=== PATIENT | male | born 1955 | race Caucasian/White ===

== ENCOUNTER 2022-12-19 15:23 | Observation (INO) | payer MEDICARE, SELFPAY ==
[2022-12-19] VITALS (19 sets, daily range): BP systolic 124–153; BP diastolic 70–98; PULSE 54–81; RESP 11–20; TEMP 35.9–36.9; O2SAT 95–99; BMI 28.9
--- NOTE | ~2022-12-19 | CT_ITS ---
EXAMINATION: CTA BRAIN/CAROTID DATE: 12/19/2022 16:45 INDICATION: Transient global amnesia TECHNIQUE: Computed tomographic angiography (CTA) of the head and neck was performed with 100 mL Omni paque-350 intravenous contrast. Multiplanar reconstructions and maximum intensity projection 3D-recon structions of the carotid arteries and of the intracranial arteries were created by the technologist on a separate workstation. Precontrast CT of the head was also obtained. Automated exposure control and iterative reconstruction technique were employed.The dose-length product was 1929.99 mGy-cm. COMPARISON: None. FINDINGS: Carotid arteries: Thoracic aorta and great vessels arising from the arch are normal in caliber with small amounts of at herosclerotic plaque without hemodynamically significant stenosis and no dissection. There is small a mount of atherosclerotic plaque with 0% stenosis of the right carotid bulb relative to normal distal artery lumen diameter (NASCET criteria). There is no evident atherosclerotic plaque with 0% stenosis of the left carotid bulb relative to normal distal artery lumen diameter. Multinodular goiter, the la rgest a 1.6 cm hypoenhancing right thyroid nodule. Cervical soft tissues are otherwise unremarkable. Visual is portions of the mid to upper lungs are clear. Moderate cervical spondylosis. Head: No acute intracranial hemorrhage, acute infarction or abnormal extra axial fluid collection. Ventricl es are normal and symmetric. No mass/mass effect.. No abnormally enhancing brain lesions. Changes of bilateral intraocular lens replacement. The orbits and mastoid air cells are normal. Mild mucosal thi ckening the left maxillary sinus. Intracranial arteries Small amount of atherosclerotic plaque without hemodynamically significant stenosis at the bilateral carotid siphons. There is no hemodynamically significant stenosis in the vertebral, basilar and inter nal carotid arteries. Vertebral arteries are codominant. There are no aneurysms identified. Both A1 and P1 segments are patent. There is also a patent anterior communicating artery. Cerebral arterial a rborization appears symmetric. IMPRESSION: 1. 0% stenosis of the right carotid bulb relative to normal distal artery lumen diameter (NASCET crit eria). 2. 0% stenosis of the left carotid bulb relative to normal distal artery lumen diameter. 3. Normal aging brain with no acute intracranial process or abnormally enhancing brain lesions. 4. Unremarkable cerebral CT angiogram with no significant stenosis or aneurysm. Reviewed, dictated and finalized at location A. IMPRESSION: 1. 0% stenosis of the right carotid bulb relative to normal distal artery lumen diameter (NASCET criteria). 2. 0% stenosis of the left carotid bulb relative to normal distal artery lumen diameter. 3. Normal aging brain with no acute intracranial process or abnormally enhancin g brain lesions. 4. Unremarkable cerebral CT angiogram with no significant stenosis or aneurysm.
--- NOTE | ~2022-12-19 | MR_ITS ---
EXAMINATION: MR brain/brain stem wo/w con DATE: 12/20/2022 14:42 INDICATION: Transient ischemic episode. Global transient amnesia TECHNIQUE: Magnetic resonance imaging (MRI) of the brain and brainstem was performed without and with 18 mL Multihance intravenous contrast. Sequences included sagittal and axial T1-weighted SE, axial d iffusion-weighted FS SE, axial 3D SWAN, axial T2-weighted FLAIR, and axial T2-weighted FSE. Postcontr ast axial and coronal T1-weighted SE was obtained. Apparent diffusion coefficient (ADC) maps were cre ated. COMPARISON: None. FINDINGS: There are no areas of restricted diffusion to suggest acute infarction. No intracranial hemorrhage or abnormal intracranial mass lesion. There are no intraparenchymal signal abnormalities seen on the ot her pulse sequences. The ventricles are symmetric and normal in size. There are no abnormal extra-axi al fluid collections. There are no areas of abnormal enhancement on the post contrast images. Flow vo ids are seen in the cerebral arteries on the T2-weighted sequences consistent with their expected pat ency. Changes of bilateral intraocular lens replacement. Visualized orbits and soft tissues are unrem arkable. IMPRESSION: 1. Normal brain. No acute intracranial process or abnormally enhancing brain lesions. Reviewed, dictated and finalized at location A. IMPRESSION: 1. Normal brain. No acute intracranial process or abnormally enhancing brain le sions.
--- NOTE | ~2022-12-19 | XR_ITS ---
EXAMINATION: XR chest 2V 12/19/2022 16:47 INDICATION: Altered mental status PROCEDURE: 2 view chest COMPARISON: No prior studies for comparison. FINDINGS: The lungs are clear. The cardiomediastinal silhouette is within normal limits. There are no pleural effusions. There is no pneumothorax suspected. IMPRESSION: 1: NO ACUTE CARDIOPULMONARY DISEASE. Reviewed, dictated and finalized at location B.
--- NOTE | 2022-12-19 15:38 | ECG_ITS ---
Measurements Intervals [place] Rate: 76 P: 33 HI: 197 QRS: -2 QRSD: 100 T: 9 QT: 380 QTc: 428 Interpretive Statements SINUS RHYTHM DELAYED PRECORDIAL R/S TRANSITION LOW QRS VOLTAGE IN PRECORDIAL LEADS BORDERLINE ECG NO PREVIOUS ECG AVAILABLE FOR COMPARISON Electronically Signed On 12-20-2022 12:08:41 CDT by Torey Nice D.O.
[2022-12-19 16:17] LABS: Basophils Percent Auto 0.4 % (0.2-1.2); Eosinophils Absolute Auto 0.1 K/mm3 (0-0.3); Eosinophils Percent Auto 1.8 % (0-4.4); Hematocrit 41.2 % (42.0-52.0); Hemoglobin 13.7 g/dL (14.0-18.0); Immature Granulocyte Absolute 0.01 K/mm3 (0.00-0.031); Immature Granulocyte Percent A 0.2 % (0-0.5); Lymphocytes Absolute Auto 0.95 K/mm3 (0.9-3.2); Lymphocytes Percent Auto 19.2 % (18.3-44.2); Mean Corpuscular HGB Conc 33.3 g/dl (32-36); Mean Corpuscular Hemoglobin 28.6 pg (26-34); Mean Platelet Volume 9.5 fl (7.4-10.4); Monocytes Absolute Auto 0.3 K/mm3 (0.1-0.6); Monocytes Percent Auto 6.7 % (2.6-8.5); Neutrophils Absolute Auto 3.6 K/mm3 (1.3-6.7); Neutrophils Percent Auto 71.7 % (45.5-73.1); Platelet Count Result 141 k/mm3 (150-375); Red Blood Count 4.79 M/mm3 (4.6-6.20); Red Cell Distribution Width 12.9 % (11.5-14.5)
[2022-12-19 16:25] LABS: Prothrombin Time 13.2 Seconds (11.1-14.7)
[2022-12-19 16:26] LABS: Partial Thromboplastin Time 28.9 SECONDS (22.3-36.8)
[2022-12-19 16:29] LABS: Alanine Aminotransferase 23 U/L (6-50); Albumin Level 4.3 g/dL (3.5-5.1); Alkaline Phosphatase 73 U/L (38-126); Anion Gap 8 mmol/L (8-16); Aspartate Amino Transferase 29 U/L (17-59); Bilirubin,Total 0.9 mg/dL (0.2-1.3); Blood Urea Nitrogen 19 mg/dL (9-20); Calcium 8.7 mg/dL (8.4-10.2); Carbon Dioxide 24 mmol/L (22-30); Chloride 105 mmol/L (98-107); Estimated CRCL calculation 57 ml/min; Estimated Glomerular Filt Rate > 60; Glucose 84 mg/dL (65-110); Potassium 3.7 mmol/L (3.4-5.0); Sodium 137 mmol/L (137-145)
[2022-12-19 16:41] LABS: Troponin I < 0.012 ng/mL (0.000-0.034)
--- NOTE | 2022-12-19 16:56 | ED.AMS ---
HPI - Altered Mental Status General Chief Complaint: Altered Mental Status Stated Complaint: AMS Time Seen by Provider: 12/19/22 15:35 History of Present Illness HPI narrative: Patient is a 67-year-old male who presents ER with sudden onset confusion. Occurred at 2 PM. Patient had been at his niece's house performing plumbing. He had been acting normal during the day and then this began. Patient has history of TIA in the past. Family reports he is otherwise healthy outside of elevated cholesterol. He had been on Plavix up until a few years ago when it was discontinued. Patient is alert and oriented to self and is aware he is at hospital but is unsure why. Related Data Home Medications Medication Instructions Recorded Confirmed aspirin 81 mg tablet 81 mg PO 12/19/22 atorvastatin 40 mg tablet 40 mg PO DAILY 12/19/22 Allergies Allergy/AdvReac Type Severity Reaction Status Date / Time erythromycin base Allergy Hives Verified 12/19/22 16:02 Review of Systems Review of Systems: ROS unobtainable: Yes unobtainable due to mental status PMFSH Past Medical History Medical History (Updated 12/19/22 @ 18:01 by Lauro Jane MD) Hyperlipidemia TIA (transient ischemic attack) Surgical History Surgical History (Updated 12/19/22 @ 17:56 by Lauro Jane MD) History of appendectomy Social History Social History (Updated 12/19/22 @ 17:56 by Lauro Jane MD) Social History: History of tobacco use but currently uses a vape pen Exam Narrative: GENERAL: Well-appearing, well-nourished, and in no acute distress. HEAD: Normocephalic, atraumatic. EYES: PERRL and EOMI. ENT: Mucous membranes moist. NECK: Supple. No carotid bruit CHEST: Clear to auscultation. No respiratory distress. HEART: Regular rate and rhythm. Normal peripheral pulses. ABDOMEN: Soft, nontender, nondistended. EXTREMITIES: Normal range of motion. No edema. SKIN: Warm, dry, no rash. NEURO: No upper or lower extremity drift. Clear speech. No facial asymmetry. Normal finger-nose testing and [id number] testing. Alert and oriented x2. Gross sensation intact.. Course Course Emergency Course: Patient resting comfortably. No change in status. Neurology consulted and recommends Plavix. Patient will be admitted for observation and hospitalist has accepted the patient. Patient's symptoms are noncompatible for tPA administration. Vital Signs Vital signs: Vital Signs Temperature 98.4 F 12/19/22 15:35 Pulse Rate 74 12/19/22 15:35 Respiratory Rate 17 12/19/22 15:35 Pulse Oximetry 95 12/19/22 15:35 Oxygen Delivery Room Air 12/19/22 15:35 Temperature 98.4 F 12/19/22 15:35 Pulse Rate 70 12/19/22 16:01 Respiratory Rate 11 L 12/19/22 16:01 Blood Pressure 140/98 H 12/19/22 16:01 Pulse Oximetry 96 12/19/22 16:01 Oxygen Delivery Room Air 12/19/22 15:35 MDM - Altered Mental Status Lab Data 12/19/22 16:10 12/19/22 16:10 Labs: Lab Results 12/19/22 Range/Units 16:10 WBC 5.0 (4.5-10.0) K/mm3 RBC 4.79 (4.6-6.20) M/mm3 Hgb 13.7 L (14.0-18.0) g/dL Hct 41.2 L (42.0-52.0) % MCV 86.0 (80-100) fl MCH 28.6 (26-34) pg MCHC 33.3 (32-36) g/dl RDW 12.9 (11.5-14.5) % Plt Count 141 L (150-375) k/mm3 MPV 9.5 (7.4-10.4) fl Immature Gran % (Auto) 0.2 (0-0.5) % Neut % (Auto) 71.7 (45.5-73.1) % Lymph % (Auto) 19.2 (18.3-44.2) % [place] % (Auto) 6.7 (2.6-8.5) % Eos % (Auto) 1.8 (0-4.4) % Baso % (Auto) 0.4 (0.2-1.2) % Lymph # (Auto) 0.95 (0.9-3.2) K/mm3 [place] # (Auto) 0.3 (0.1-0.6) K/mm3 Eos # (Auto) 0.1 (0-0.3) K/mm3 Baso # (Auto) 0.0 (0.0-0.1) K/mm3 Abs Immat Gran (auto) 0.01 (0.00-0.031) K/mm3 Absolute Neuts (auto) 3.6 (1.3-6.7) K/mm3 Absolute Nucleated RBC 0.0 (0.0-0.012) K/mm3 Nucleated RBC % 0.0 (0.0-0.2) % PT 13.2 (11.1-14.7) Seconds INR 1.0 APTT 28.9 (22.3-36.8) SECONDS Sodium
[2022-12-19 17:00] LABS: Ethanol < 10 mg/dL (<10)
[2022-12-19] MEDS: CLOPIDOGREL BISULFATE 75 MG TABLET PO (18:12)
[2022-12-19 18:29] LABS: Appearance Urine Clear (Clear); Bilirubin Urine Negative (Negative); Blood Urine Negative (Negative); Color Urine Yellow (Yellow); Glucose Urine UA Negative (Negative); Ketones Urine Negative (Negative); Leukocyte Esterase Ur Negative LEU/UL (Negative); Nitrate Urine Negative (Negative); Protein Urine Negative (Negative); Urobilinogen Urine 0.2 mg/dL (<2.0)
--- NOTE | 2022-12-19 18:36 | PM.IMHP ---
H&P: HPI History of Present Illness Date/Time: 12/19/22 20:00 Chief Complaint: Altered mental status. Narrative: This is a 67-year-old male with history of TIA and hyperlipidemia who presented to the emergency department via EMS for evaluation of altered mental status. He does not really recall the events that happened today and as such a majority of the following history is obtained from his in niece who were at bedside, with the patient's permission. He spent the morning with his [id number], helping fix a plumbing problem at his niece's home. They finished working at around 14:00 and not long thereafter well he was getting ready to leave, he appears disoriented. For instance he had difficulties discerning which stools were his and he wondered where he was and what he was doing there. EMS was summoned and he was brought in for concerns of stroke. He did not have any neurologic deficits on arrival and there were no reports of slurred speech, facial droop, or focal weakness. He has been repetitive since arrival, continuously asking where he is and why he was brought here. With further questioning he does not remember golfing on Saturday, running errands with his yesterday, or going to bed last night. He does not recall getting up this morning, going to [employer] twice, or fixing a plumbing problem at his niece's home. He has not had any recent illnesses or sick contacts. No new medications or recent travel. He has not had any falls or trauma. No recent strenuous activity or stressors. In the ED: Blood pressure was 140/98 on arrival. The rest of his vital signs were normal. Platelet count was a little low at 141 but the remainder of his labs were unremarkable. Urine drug screen was negative and ethyl alcohol level was undetectable. CT of the head and neck is showed normal brain that acute process and 0% stenosis of the carotid bulbs. He is being admitted in this setting for close monitoring and further evaluation with a working diagnosis of transient global amnesia. Review of Systems Review of Systems: Twelve systems were reviewed and are negative except for as per HPI. [facility] Past Medical History Medical History (Updated 12/19/22 @ 22:24 by Ree Pabon PA-C) Hyperlipidemia Transient ischemic attack Surgical History Surgical History History of appendectomy History of esophageal dilatation Family History Family History Mother Hyperlipidemia Hypertension Breast cancer Father Hyperlipidemia Hypertension Social History Social History (Updated 12/19/22 @ 22:20 by Ree Pabon PA-C) Social History: Surrogate medical decision maker: Jennifer Moon, spouse. Code status: Full code. Smoking packs per day: 2 Smoking cigarettes per day: 40.0 Years smoked: 44 Smoking pack-years: 88.00 Smoking status: Former smoker Tobacco type: e-cigarettes/vaping Additional smoking assessment comments: Quit smoking 9 years ago, now vapes. Alcohol intake: current Drinks per week: 2 Substance use: never Substance use type: does not use Lack of Transportation: No Lack of Food: Never True Current Housing: I Have Housing Concerned About Future Housing: No Difficulty Paying Gas/Electric Bills: No Difficulty Paying for Meds: No Currently Unemployed: No Education: Decline to Answer Difficulty w/ Childcare or Family Care: No Additional living arrangements comments: . Lives with spouse in [place]. Golfs 3 to 4 times a week. Additional occupation/education comments: Retired from [employer]. Spiritual care concerns: No Meds Home Medications and Allergies Home Medications Medication Instructions Recorded Confirmed Type aspirin 81 mg tablet 81 mg PO HS 12/19/22 12/19/22 History atorvastatin 40 mg tablet 40 mg PO DAILY 12/19/22 12/19/22 History
[2022-12-19 18:42] LABS: Add Urine Microscopic? NO; Amphetamine Screen Urine Negative (Negative); Barbiturate Screen Urine Negative (Negative); Benzodiazepines Screen Urine Negative (Negative); Cannabinoid Screen Urine Negative (Negative); Cocaine Screen Urine Negative (Negative); Methadone Screen Urine Negative (Negative); Opiate Screen Urine Negative (Negative); Phencyclidine Screen Urine Negative (Negative); Specific Grav Ur 1.061 (1.001-1.035)
--- NOTE | 2022-12-19 18:44 | ADMGEN ---
This patient, Aaron Moon, was admitted to [facility] Surg Room 304-01. Patient/family oriented to hospital policies and general routines including ID bracelet, bed and alarms, visiting hours, pain management, procedures, bathroom and other care routines, personal items, smoking policy, room service/diet, and visiting hours. Information on how to activate the Rapid Response Team has been discussed. Patient/Family are encouraged to report perceived risks to care and to ask questions if they do not understand what they are told or what they should do.
[2022-12-20] VITALS (10 sets, daily range): BP systolic 121–127; BP diastolic 73–82; PULSE 55–78; RESP 12–18; TEMP 36.7–36.8; O2SAT 93–97
[2022-12-20 06:12] LABS: Hematocrit 40.2 % (42.0-52.0); Hemoglobin 13.4 g/dL (14.0-18.0); Immature Platelet Fraction Pct 3.2 % (0.9-11.2); Mean Corpuscular HGB Conc 33.3 g/dl (32-36); Mean Corpuscular Hemoglobin 28.8 pg (26-34); Mean Corpuscular Volume 86.3 fl (80-100); Mean Platelet Volume 9.4 fl (7.4-10.4); Platelet Count Result 152 k/mm3 (150-375); Red Blood Count 4.66 M/mm3 (4.6-6.20); Red Cell Distribution Width 13.1 % (11.5-14.5); White Blood Count 4.4 K/mm3 (4.5-10.0)
[2022-12-20 06:21] LABS: Anion Gap 7 mmol/L (8-16); Blood Urea Nitrogen 17 mg/dL (9-20); Calcium 8.5 mg/dL (8.4-10.2); Carbon Dioxide 25 mmol/L (22-30); Chloride 103 mmol/L (98-107); Estimated CRCL calculation 62 ml/min; Estimated Glomerular Filt Rate > 60; Glucose 91 mg/dL (65-110); Magnesium 2.2 mg/dL (1.6-2.3); Potassium 3.8 mmol/L (3.4-5.0); Sodium 135 mmol/L (137-145)
[2022-12-20] MEDS: ATORVASTATIN 40 MG TABLET PO (08:49)
[2022-12-20] MEDS: CLOPIDOGREL BISULFATE 75 MG TABLET PO (08:49)
--- NOTE | 2022-12-20 09:59 | WPDNEURCNPN ---
Assessment and Plan Assessment and plan (1) Amnesia, global, transient: Code(s): G45.4 - Transient global amnesia Status: Acute (2) Transient global amnesia: Code(s): G45.4 - Transient global amnesia Status: Acute (3) Hyperlipidemia: Code(s): E78.5 - Hyperlipidemia, unspecified Status: Acute (4) Elevated blood pressure reading: Code(s): R03.0 - Elevated blood-pressure reading, without diagnosis of hypertension Status: Acute Plan Aaron Moon is a 67 year old male with a history of hyperlipidemia and prior TIAs presenting for evaluation of confusion and acute memory impairment. Concern for possible TIA vs transient global amnesia. - MRI brain - Continue aspirin and Lipitor 40mg daily - Reasonable to continue Plavix for 3 weeks if we are call this episode a TIA, but there is no evidence for continuation of terminal gauger DAPT past that Consult date: 12/20/22 Reason for consult: Amnesia, altered mental status HPI: Aaron Moon is a 67 year old male with a history of hyperlipidemia and prior TIAs presenting for evaluation of confusion and acute memory impairment. On day of presentation, patient was helping fix plumbing issues at his niece's home. Once he finished and was getting to leave, he became disoriented. He was having difficulty figuring out which tools were his and where he was and why he was there. EMS was called. Patient did not have any other focal neurological deficits at the time of their evaluation. When he was brought in to [facility] he kept asking where he was and why he was brought there. Per chart review, he also had some difficulty remembering events over the past few days such as golfing, helping his niece with plumbing. In the ED his blood pressure was in the 140s systolic. EKG was normal. CT head and CTA brain/carotid was normal as well. UDS was negative. His NIH score was [address] Silvestre was consulted in the ER and recommended admission and starting patient on Plavix. He already takes aspirin and Lipitor 40mg daily. He used to previously be on Plavix years ago, but it was discontinued. The whole episode of confusion lasted about 6-7 hours. He still has no recollection of riding in the ambulance or being brought to the hospital. He reports feeling back to baseline this morning. Review of Systems Constitutional: Constitutional: Denies chills, Denies fever(s) and Denies weight loss Eyes: Eyes: Denies diplopia and Denies loss of vision ENT: Denies dizziness, Denies hearing loss and Denies tinnitus Cardiovascular: Cardiovascular: Denies chest pain, Denies syncope and Denies dyspnea Respiratory: Respiratory: Denies cough, Denies dyspnea and Denies wheezing Gastrointestinal: Gastrointestinal: Denies abdominal pain, Denies change in bowel habits and Denies vomiting Genitourinary: Genitourinary: Denies urinary incontinence Musculoskeletal: Musculoskeletal: Denies arthralgias and Denies joint swelling Integumentary/Breasts: Skin/Breast: Denies new lesions and Denies rash Neurologic: Reports as per HPI, Reports confusion, Denies dizziness, Denies syncope and Denies loss of vision Psychiatric: Psychiatric: Reports anxiety and Denies depression Endocrine: Endocrine: Denies cold intolerance and Denies heat intolerance Hematologic/Lymphatic: Hematologic/Lymphatic: Denies easy bleeding and Denies easy bruising Allergic/Immunologic: Allergic/Immunologic: Denies no additional allergic/immunologic complaints and Denies wheezing PMFSH Past Medical History Medical History Hyperlipidemia Transient ischemic attack Surgical History Surgical History History of appendectomy History of esophageal dilatation Family History Family History Mother Hyperlipidemia Hypertension Breast cancer Father Hyp
[2022-12-20] MEDS: ACETAMINOPHEN 325 MG TABLET 650 MG PO (11:21)
--- NOTE | 2022-12-20 14:31 | PM.IMPN ---
Progress Note: A&P Assessment and Plan (1) Transient global amnesia: Code(s): G45.4 - Transient global amnesia Status: Acute Assessment and Plan: Neurologic assessment pending MRI and echocardiogram, CTA is negative, patient is on aspirin and Plavix since admission (2) Elevated blood pressure reading: Code(s): R03.0 - Elevated blood-pressure reading, without diagnosis of hypertension Status: Acute Assessment and Plan: Blood pressure reviewed on 12/20, stable no need for immediate intervention (3) Hyperlipidemia: Code(s): E78.5 - Hyperlipidemia, unspecified Status: Acute Assessment and Plan: Continue home medication Plan Pending MRI and echocardiogram, possible TIA versus transient global amnesia Time Spent With Patient Time with patient: 25 - 35 minutes Subjective Date/time seen: 12/20/22 14:31 Interval history: Patient was admitted for an episode transient global amnesia. Patient is very frustrated that he cannot remember what happened yesterday. Patient states that he feels fine now and has no residual symptoms. He notes that he had a small cut on his hand that he does not remember bandaging but otherwise feels fine. Neurology recommended MRI echocardiogram which have been captured but not resulted. Review of Systems Review of Systems: All systems reviewed & are unremarkable except as noted in HPI and below Exam Narrative: GENERAL: Generally well appearing, alert and oriented, in no apparent distress. He is pleasant and conversant in full sentences. HEENT: Pupils are equally round and briskly reactive to light. Extraocular muscles are intact. Oral mucous membranes are moist without lesions. NECK: The patient has no noted JVD. No adenopathy is appreciated. CHEST/LUNGS: Lungs are clear bilaterally without rhonchi, rales, or wheezes. There is no subcutaneous air appreciated. HEART: The patient has a regular rate and rhythm. No murmurs, rubs, or gallops are appreciated. Distal pulses are 2+. ABDOMEN: The patient?s abdomen is soft, nontender, and nondistended. Bowel sounds are positive. No organomegaly is appreciated. No masses are appreciated. There are no peritoneal signs. There is no Leo?s sign. EXTREMITIES: The patient has no peripheral edema. There is no focal long bone tenderness or deformity. Small skin tear/laceration over 2nd MCP right hand SKIN: The patient?s skin is warm and dry, without rashes or lesions. PSYCHIATRIC: The patient has normal mental status and has an appropriate affect. NEUROLOGIC: There are no gross deficits to the cranial nerves. Patient moves all extremities well 5/5 strength Objective Data Vital Signs Vital Signs: Vital Signs - 24 hr 12/19/22 15:35 12/19/22 15:50 12/19/22 16:00 Temperature 36.9 C Pulse Rate 74 70 61 Respiratory Rate 17 15 12 Blood Pressure Pulse Oximetry 95 95 96 Oxygen Delivery Room Air 12/19/22 16:01 12/19/22 16:02 12/19/22 16:15 Temperature Pulse Rate 70 67 59 L Respiratory Rate 11 L 12 17 Blood Pressure 140/98 H Pulse Oximetry 96 96 96 Oxygen Delivery 12/19/22 16:16 12/19/22 16:31 12/19/22 16:32 Temperature Pulse Rate 65 54 L 63 Respiratory Rate 18 15 15 Blood Pressure 140/94 H 134/88 Pulse Oximetry 97 97 96 Oxygen Delivery 12/19/22 16:50 12/19/22 17:09 12/19/22 17:17 Temperature Pulse Rate 64 66 65 Respiratory Rate 20 17 13 Blood Pressure Pulse Oximetry 99 98 99 Oxygen Delivery 12/19/22 17:37 12/19/22 17:57 12/19/22 18:00 Temperature Pulse Rate 65 67 68 Respiratory Rate 16 18 14 Blood Pressure Pulse Oximetry 97 98 98 Oxygen Delivery 12/19/22 18:15 12/19/22 18:41 12/19/22 20:00 Temperature 35.9 C L Pulse Rate 68 58 L 81 Respiratory Rate 17 18 Blood Pressure 153/93 H Pulse Oximetry 98 99 Oxygen Delivery 12/19/22 20:00 12/19/22 22:00 12/20/22 00:00 Temperature 36.3 C L Pulse Rate 58 L 76 64 Respirato
[2022-12-20] MEDS: ASPIRIN 81 MG CHEWABLE TABLET PO (20:01)
--- NOTE | 2022-12-20 22:27 | ECHO_ITS ---
Patient Info Name: Aaron Moon Age: 67 years : 1955 Gender: Male Ht: 69 in Wt: 195 lbs BSA: 2.10 m2 HR: 74 bpm BP: 124 / 82 mmHg Heart Rhythm: Sinus Rhythm Technical Quality: Good Exam Date: 12/20/2022 11:00 AM Exam Location: [facility] Pulmonary Patient Status: Outpatient Admit Date: 12/19/2022 Staff Ordering Physician: Ree Pabon PA-C Data Entry Assistant: Trupti Mackay RDCS Attending Provider: Ok Ontiveros MD Referring Physician: Pepper VINCENT; Exam Type: CA echo doppler w bubble study Study Info Indications - elevated troponin, confiusion, HLD Complete two-dimensional, color flow and Doppler transthoracic echocardiogram is performed with agitated saline. Contrast/Agitated Saline Contrast/Ag. Saline: Agitated Saline Amount: --- ml Summary 1. Left ventricular chamber dimension is normal. 2. Left ventricular systolic function is normal, estimated at 65-70%. 3. The left ventricular diastolic function is grade I diastolic dysfunction. 4. Right ventricular systolic function is normal. 5. There is trace mitral valve regurgitation. 6. There is trace tricuspid valve regurgitation. 7. Intact interatrial septum visualized by color flow and agitated saline imaging. Negative bubble study. Left Ventricle Left ventricular chamber dimension is normal. Left ventricular systolic function is normal, estimated at 65-70%. There is no increased left ventricular wall thickness. The left ventricular diastolic function is grade I diastolic dysfunction. Right Ventricle Right ventricular chamber dimension is normal. Right ventricular systolic function is normal. Left Atria Left atrial chamber dimension is normal. Right Atria Right atrial chamber dimension is normal. Atrial Septum Intact interatrial septum visualized by color flow and agitated saline imaging. Negative bubble study. Aortic Valve The aortic valve is trileaflet. There is mild aortic valve sclerosis. There is no aortic valve stenosis. There is no aortic valve regurgitation. Pulmonic Valve The pulmonic valve is not well visualized. Mitral Valve There is trace mitral valve regurgitation. Tricuspid Valve There is trace tricuspid valve regurgitation. Pericardium/Pleural The pericardium appears epicardial fat pad. There is no pericardial effusion. Inferior Vena Cava Normal inferior vena cava with >50% collapse upon inspiration consistent with normal right atrial pressure, 3 mmHg. Aorta The aortic root size at the sinus of Valsalva is normal. Tricuspid Valve Name Value Normal Estimated PAP/RSVP RA Pressure 3 mmHg <=5 Report Signatures
[2022-12-21] VITALS: PULSE 73
[2022-12-21 04:00] VITALS: PULSE 63
[2022-12-21 06:00] VITALS: BP 122/84; PULSE 57; RESP 16; TEMP 36.4; O2SAT 95
[2022-12-21 08:00] VITALS: PULSE 71
[2022-12-21] MEDS: CLOPIDOGREL BISULFATE 75 MG TABLET PO (08:44)
[2022-12-21] MEDS: ATORVASTATIN 40 MG TABLET PO (08:44)
--- NOTE | 2022-12-21 12:39 | PM.DS ---
DS: Admitting Diagnosis Discharge Date 12/21/22 Admitting Diagnosis Altered mental status DS: Discharge Diagnosis Discharge Diagnosis (1) Transient global amnesia: Code(s): G45.4 - Transient global amnesia Status: Acute DS: Summary Hospital Course Reason for hospitalization: Altered mental status Hospital Course: Patient is a 67 y/o male with past medical history hyperlipidemia, history of TIA presents to ED with complaints of altered mental status. Patient had a period of time of amnesia which he cannot recall. 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 No other focal neurological deficits. Echocardiogram shows LE 65-70%, grade 1 diastolic dysfunction. Brain MRI negative. Head and neck CTA shows 0% stenosis. Stroke workup was negative. During patient's hospitalization, no more episodes of amnesia and he was seemingly back to baseline. Neurology was consulted, with likely diagnosis transient global amnesia, no new medication recommendations. At time of discharge, patient's labs are stable, vitals are stable, patient is stable for discharge home. Patient understands and agrees with plan. Status at Discharge Cognitive/behavioral status at discharge: baseline Time Spent with Patient Time attestation: Total time spent providing and/or coordinating discharge services: 35 Exam Narrative: - GENERAL: Pleasant male in no acute distress. Well-nourished. - EYES: EOMI. Anicteric. - HENT: Moist mucous membranes. - LUNGS: Clear to auscultation bilaterally, no wheezing, rhonchi, or rales. - CARDIOVASCULAR: Regular rate and rhythm. No murmur. No JVD. - ABDOMEN: Soft, non-tender and non-distended. No palpable masses. - EXTREMITIES: No edema. Peripheral pulses 2+. Non-tender. - NEUROLOGIC: No focal neurological deficits. CN II-XII grossly intact. - PSYCHIATRIC: Awake, Alert and oriented x 3. Appropriate mood and affect. - SKIN: No rashes or lesions. Warm. - LYMPH: No cervical lymphadenopathy. DS: Data Additional Comments Additional comments: CXR 12/19/22 IMPRESSION: 1:? NO ACUTE CARDIOPULMONARY DISEASE. CTA head/neck 12/19/22 IMPRESSION: 1. 0% stenosis of the right carotid bulb relative to normal distal artery lumen diameter (NASCET criteria). 2. 0% stenosis of the left carotid bulb relative to normal distal artery lumen diameter. 3. Normal aging brain with no acute intracranial process or abnormally enhancing brain lesions. 4. Unremarkable cerebral CT angiogram with no significant stenosis or aneurysm. Brain MRI 12/20/22 IMPRESSION: 1. Normal brain. No acute intracranial process or abnormally enhancing brain lesions. Discharge Plan Discharge Attending physician on discharge: Inder Méndez Consulting providers: Christopher Silvestre Discharging Clinician: Inder Méndez Anticipated Discharge Date/Time: 12/21/22 12:00 Patient Disposition: Home, Self-Care Activity: as tolerated Diet: heart healthy Discharge Instructions: No new medications. Likely diagnosis transient global amnesia. Please make follow up appointment with your primary care provider in 1-2 weeks after hospital discharge. Thank you for choosing [facility]. Patient Instructions: Antibiotic Form, Clopidogrel (By mouth), How to Stop Smoking (DC) Stand Alone Forms: General Discharge Information Follow-up/Referrals: Erendira Worrell MD [Physician] - Call for Appointment Discharge Medications: Continued atorvastatin 40 mg Tablet 40 mg PO DAILY aspirin 81 mg Tablet 81 mg PO HS sildenafil 100 mg tablet 100 mg PO PRN PRN (Reason: Erectile Dysfunction) Date of admission: 12/19/22 17:19 Primary Care Provider: PHYSICIAN NOT ON STAFF,NONSTAFF Admitting Provider: Ok Ontiveros Attending physician on admission: Inder Méndez Condition: Stable AMG Discharge Billing Hospital Discharge Hospital Discharge: 42277 Hosp D/C >30 Min
== END 2022-12-21 12:55 | disposition home or self-care (01) ==
LOC: ANHED 15:56 → ANH3MEDSUR 17:50
PROVIDERS: Physician Assistant; Admitting Provider Hospitalist; Emergency Provider Emergency Medicine; Visit Provider Student in an Organized Health Care Education/Training Program
DX: G45.4 Transient global amnesia (principal); R03.0 Elevated blood-pressure reading, without diagnosis of hypertension; E78.5 Hyperlipidemia, unspecified; N52.9 Male erectile dysfunction, unspecified; I51.89 Other ill-defined heart diseases; R77.8 Other specified abnormalities of plasma proteins; R94.31 Abnormal electrocardiogram [ECG] [EKG]; F17.290 Nicotine dependence, other tobacco product, uncomplicated; F10.90 Alcohol use, unspecified, uncomplicated; Y90.0 Blood alcohol level of less than 20 mg/100 ml; Z86.73 Personal history of transient ischemic attack (TIA), and cerebral infarction without residual deficits; Z79.02 Long term (current) use of antithrombotics/antiplatelets; Z79.82 Long term (current) use of aspirin; Z79.899 Other long term (current) drug therapy
CPT/HCPCS: 36415; 70496; 70498; 70553; 71046; 80048; 80053; 80307; 81003; 83735; 84443; 84484; 85025; 85027; 85055; 85610; 85730; 93005; 93306; 96375; 99285; A9270; A9577; G0378; Q9967